=== PATIENT | male | born 1970 | race American Indian/Alaskan Native ===

== ENCOUNTER 2018-06-05 14:42 | Emergency (ER) | payer OTHER ==
[2018-06-05] MEDS ORDERED: NACL 0.9% IR ONE (14:47)
[2018-06-05] MEDS ORDERED: TRIPLE ANTIBIOTIC TP ONE (14:47)
[2018-06-05] MEDS ORDERED: XYLOCAINE 1%/ EPI 1:100,000 INFILTRATI ONE (14:47)
[2018-06-05] MEDS ORDERED: BOOSTRIX IM ONE (14:47)
--- NOTE | 2018-06-05 14:49 | Emergency Department Report ---
Stated Complaint: GASH ON HEAD - HPI History of Present Illness: FALL FROM LADDER CLIMBING TO ROOF LARGE HEAD LAC NO LOC PRESSURE IN TRIAGE CSPINE IMMOB TO MAIN MSE screening note: Focused history and physical exam performed. Due to findings the following was ordered: ED Disposition for MSE Condition: Stable
[2018-06-05] MEDS ORDERED: ANCEF/NS 1 GM/50 ML 1 GM/50 ML BAG IV ONE (14:57)
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
[2018-06-05 15:17] LABS: Basophils % (Auto) 0.5 % (0.0-1.8); Eosinophils % (Auto) 0.6 % (0.0-4.3); Hematocrit 39.1 % (35.5-45.6); Hemoglobin 13.2 gm/dl (11.8-15.2); Lymphocytes # (Auto) 1.5 K/mm3 (1.2-5.4); Lymphocytes % (Auto) 32.8 % (13.4-35.0); Mean Corpuscular HGB Conc 34 % (32-34); Mean Corpuscular Volume 83 fl (84-94); Monocytes # (Auto) 0.3 K/mm3 (0.0-0.8); Platelet Count 169 K/mm3 (140-440); Red Blood Count 4.72 M/mm3 (3.65-5.03); Red Cell Distribution Width 14.7 % (13.2-15.2)
[2018-06-05 15:29] LABS: BUN/Creatinine Ratio 12; Blood Urea Nitrogen 12 mg/dL (9-20); Calcium 9.2 mg/dL (8.4-10.2); Hemolysis Index 3
[2018-06-05] MEDS ORDERED: ZOFRAN IV ONE (15:34)
[2018-06-05] MEDS ORDERED: MORPHINE IV ONE (15:34)
--- NOTE | 2018-06-05 15:56 | Cat Scan Report ---
PROCEDURE: CT HEAD/BRAIN WO CON TECHNIQUE: CT of the head was performed without intravenous contrast. HISTORY: Trauma COMPARISONS: None FINDINGS: The ventricles are normal in position and shape. The ventricles are nondilated. No intracranial hemorrhage, mass, mass effect or evidence of acute ischemic infarct. The basilar cisterns are patent. The paranasal sinuses are clear. The mastoid air cells are clear. Probable old right medial orbital wall deformity is seen. The calvarium is intact. There is left frontal extracranial soft tissue swelling. IMPRESSION: 1. No acute intracranial abnormality. 2. Left frontal extracranial soft tissue swelling. 3. Probable old right medial orbital wall fracture. This document is electronically signed by Alina Page., June 05 2018 03:53:26 PM ET
--- NOTE | 2018-06-05 17:00 | Cat Scan Report ---
PROCEDURE: CT CERVICAL SPINE WO CON TECHNIQUE: CT examination of the cervical spine without IV contrast HISTORY: Trauma COMPARISONS: Head CT 06/05/2018 FINDINGS: Large body habitus limits the examination. Increased soft tissue attenuates the CT x-ray beam and deg rades image quality. Slight mucosal thickening bilateral maxillary sinuses. There is medial displacement of the medial orbital wall containing orbital fat contents. This is sug gestive of a right lamina papyracea fracture, or blow-in type fracture. Prevertebral soft tissues are without swelling. No evidence of cervical fracture or vertebral compression. Multilevel degenerative changes are present at the vertebral endplates, facet joints, and uncinate sofie ints. Anterolisthesis: None. Retrolisthesis: None. Disc narrowing: C5-6 slight, C6-7 slight IMPRESSION: No acute skeletal pathology in the cervical spine There is medial displacement of the medial orbital wall containing orbital fat contents. This is sug gestive of a right lamina papyracea fracture, or blow-in type fracture. It may be old. Correlate for right orbital symptoms. This document is electronically signed by Darin Zhong MD., June 05 2018 04:58:35 PM ET
[2018-06-05 21:15] VITALS: BP 135/62
== END 2018-06-05 18:20 | disposition home or self-care (01) ==
LOC: ED 14:42
DX: S01.81XA Laceration without foreign body of other part of head, initial encounter (principal); S09.90XA Unspecified injury of head, initial encounter; S16.1XXA Strain of muscle, fascia and tendon at neck level, initial encounter; W11.XXXA Fall on and from ladder, initial encounter; Y93.89 Activity, other specified; Y92.019 Unspecified place in single-family (private) house as the place of occurrence of the external cause; Y99.8 Other external cause status
CPT/HCPCS: 12054; 36415; 70450; 72125; 80048; 85025; 90471; 90715; 96365; 96375; 99284; J0690; J2270; J2405; A6250